=== PATIENT | female | born 1975 | race Caucasian/White ===

== ENCOUNTER 2016-08-23 16:02 | Inpatient (IN) | payer OTHER ==
[~2016-08-23] VITALS: Ht 165.1 cm; Wt 65.2 kg
[~2016-08-23 16:02] MED LIST: FLUT1SPR9; GUAI100S6 PO; TRAZ100 PO
[2016-08-23 16:15] VITALS: BP 121/89; PULSE 65; RESP 16; TEMP 97.8; O2SAT 100
[2016-08-23] MEDS: ACETAMINOPHEN/HYDROcodone 325 MG/5 MG TAB PO PRN ×2 (16:57→20:55)
[2016-08-23] MEDS: cefTRIAXone 2,000 MG/NS 100 ML IV SCH ×2 (16:59)
[2016-08-23 17:02] LABS: AUTOMATED NEUTROPHIL # 3.9 TH/MM3 (1.8-7.7); BASOPHIL # 0.1 TH/MM3 (0-0.2); BASOPHIL % 0.7 % (0.0-2.0); EOSINOPHIL # 0.1 TH/MM3 (0-0.4); EOSINOPHIL % 1.2 % (0.0-4.0); HEMATOCRIT 39.3 % (35.0-46.0); HEMO FLAGS DIFF FINAL; LYMPH % 43.4 % (9.0-44.0); LYMPHOCYTE # 3.6 TH/MM3 (1.0-4.8); MEAN CELL VOLUME 80.8 FL (80.0-100.0); MEAN CORPUSCULAR HEMOGLOBIN 26.9 PG (27.0-34.0); MEAN CORPUSCULAR HGB CONC 33.2 % (32.0-36.0); MONO % 7.7 % (0.0-8.0); PLATELET COUNT 300 TH/MM3 (150-450); RED BLOOD COUNT 4.87 MIL/MM3 (4.00-5.30); RED CELL DISTRIBUTION WIDTH 12.8 % (11.6-17.2); WHITE BLOOD COUNT 8.3 TH/MM3 (4.0-11.0)
[2016-08-23] MEDS: LACTATED RINGER'S 1000 ML INJ 1,000 ML IV SCH (17:05)
[2016-08-23] MEDS: CLINDAMYCIN INJ 900 MG in SODIUM CHLORIDE 0.9% INJ 100 ML IV SCH (18:36)
[2016-08-23 20:00] VITALS: BP 126/81; PULSE 60; RESP 20; TEMP 96.8; O2SAT 100
[2016-08-23] MEDS: guaiFENesin E.R. 600 MG TAB PO SCH (20:54)
[2016-08-23] MEDS: ONDANSETRON HCL 4 MG/2 ML VIAL IV PRN (20:56)
[2016-08-24] VITALS: BP 113/67; PULSE 63; RESP 18; TEMP 97.6; O2SAT 99
[2016-08-24] MEDS: CLINDAMYCIN INJ 900 MG in SODIUM CHLORIDE 0.9% INJ 100 ML IV SCH ×3 (02:09→17:36)
[2016-08-24] MEDS: ONDANSETRON HCL 4 MG/2 ML VIAL IV PRN ×3 (02:59→16:03)
[2016-08-24] MEDS: ACETAMINOPHEN/HYDROcodone 325 MG/5 MG TAB PO PRN ×3 (03:00→16:04)
[2016-08-24 04:00] VITALS: BP 107/64; PULSE 62; RESP 16; TEMP 97.6; O2SAT 98
[2016-08-24 08:00] VITALS: BP 123/79; PULSE 84; RESP 17; TEMP 98; O2SAT 98
--- NOTE | 2016-08-24 08:54 | PD.CONS ---
History of Present Illness Service [facility] Consult Requested By Dr. Mcallister Reason for Consult Medical management Primary Care Physician Saira Caban MD Diagnoses: (1) Pansinusitis History of Present Illness I have been asked to see this 40-year-old female with questionable history of autoimmune/antiphospholipid syndrome who with admitted last night to ENT service for pansinusitis. Patient reports that she started feeling sick sometime around Christ of 2015 but thought she had a simple virus and that it would resolve on its own. However Her respiratory symptoms and sinus pressure continued as well as fever. She was initially treated with Augmentin on August 05 per her primary care physician. This seemed to help for a short time but then she noted pain in her left tonsil area as well as recurrence of fever. Antibiotic was changed to doxycycline and Medrol was added August 13 by an urgent care center. She notes she didn't get much relief and the antibiotic reportedly was changed to levofloxacin which also didn't provide much relief. She started having pain in the right mastoid sinus area which causes her to be nervous. CT scan of her sinuses done August 19 reportedly demonstrated extensive sinus disease in the frontal sinuses, nasofrontal ducts, ethmoid sinuses, maxillary sinuses and ostiomeatal complex bilaterally. She was evaluated by Dr. Mcallister reportedly on 2 occasions. Due to the worsening of pain and apparent unresponsiveness to antibiotic she was admitted to the hospital for IV antibiotics and possible surgical intervention. He was placed on IV clindamycin and Rocephin last night. She reports that she feels better this morning. She did not sleep well as she is on Lortab for pain and this always keeps her awake she says. She has had no documented fevers here and her CBC is essentially unremarkable. Review of Systems Constitutional: COMPLAINS OF: Fatigue, Fever, Chills, Night Sweats Eyes: DENIES: Blurred vision, Diplopia, Eye inflammation, Eye pain, Vision loss , Photosensitivity, Double Vision Ears, nose, mouth, throat: COMPLAINS OF: Throat pain, Running Nose, Sinus Pain , DENIES: Tinnitus, Hearing loss, Vertigo, Nasal discharge, Oral lesions, Hoarseness, Ear Pain, Epistaxis, Toothache, Odynophagia Respiratory: DENIES: Apneas, Cough, Snoring, Wheezing, Hemoptysis, Sputum production, Shortness of breath Cardiovascular: DENIES: Chest pain, Palpitations, Syncope, Dyspnea on Exertion , PND, Lower Extremity Edema, Orthopnea, Claudication Gastrointestinal: DENIES: Abdominal pain, Black stools, Bloody stools, Constipation, Diarrhea, Nausea, Vomiting, Difficulty Swallowing, Anorexia Musculoskeletal: COMPLAINS OF: Muscle aches Hematologic/lymphatic: DENIES: Bruising, Lymphadenopathy Immunologic/allergic: DENIES: Eczema, Urticaria Neurologic: DENIES: Abnormal gait, Headache, Localized weakness, Paresthesias, Seizures, Speech Problems, Tremor, Poor Balance Psychiatric: COMPLAINS OF: Anxiety Past Family Social History Allergies: Coded Allergies: No Known Allergies (Verified , 10/07/15) Past Medical History Questionable lupus Questionable antiphospholipid syndrome Vitamin D deficiency Situational depression and anxiety Past Surgical History 2 D&C Partial hysterectomy Reported Medications Benzonatate 200 mg 3 times a day when necessary cough Flonase 2 sprays in each nostril daily Levaquin 500 mg a day which was started in August 19 Trazodone 100 mg 2 tablets at bedtime as needed, she reports she takes this approximately 3-4 days out of the week Cough syrup with codeine 1-2 teaspoons every 4-6 hours as needed for cough Family History Father had lung CA Maternal aunt with breast CA MGF pancreatic CA at age 86 Social History 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 SKIN: Multiple tattoos, No rashes, ecchymoses or lesions. Cool and dry. HEAD: Atraumatic. Normocephalic. No temporal or scalp tenderness. Slight tenderness over maxillary sinuses and right mastoid sinus. EYES: Pupils equal round and reactive. Extraocular motions intact. No scleral icterus. No injection or drainage. ENT: Nose without bleeding, purulent drainage or septal hematoma. Throat with mild erythema but no exudate. Airway patent. NECK: Trachea midline. No JVD or lymphadenopathy. Supple, nontender, no meningeal signs. CARDIOVASCULAR: Regular rate and rhythm without murmurs, gallops, or rubs. RESPIRATORY: Clear to auscultation. Breath sounds equal bilaterally. No wheezes , rales, or rhonchi. GASTROINTESTINAL: Abdomen soft, non-tender, nondistended. No hepato-splenomegaly , or palpable masses. No guarding. MUSCULOSKELETAL: Extremities without clubbing, cyanosis, or edema. No joint tenderness, effusion, or edema noted. No calf tenderness. NEUROLOGICAL: Awake and alert. Cranial nerves II through XII intact. Motor and sensory grossly within normal limits. Five out of 5 muscle strength in all muscle groups. Normal speech. Laboratory Laboratory Tests Test 08/23/16 16:50 White Blood Count 8.3 Red Blood Count 4.87 Hemoglobin 13.1 Hematocrit 39.3 Mean Corpuscular Volume 80.8 Mean Corpuscular Hemoglobin 26.9 Mean Corpuscular Hemoglobin 33.2 Concent Red Cell Distribution Width 12.8 Platelet Count 300 Mean Platelet Volume 8.1 Neutrophils (%) (Auto) 47.0 Lymphocytes (%) (Auto) 43.4 Monocytes (%) (Auto) 7.7 Eosinophils (%) (Auto) 1.2 Basophils (%) (Auto) 0.7 Neutrophils # (Auto) 3.9 Lymphocytes # (Auto) 3.6 Monocytes # (Auto) 0.6 Eosinophils # (Auto) 0.1 Basophils # (Auto) 0.1 CBC Comment DIFF FINAL Differential Comment Result Diagram: 08/23/[address] scan of the sinuses done August 19, 2016 reportedly demonstrates pansinusitis with opacification of ostiomeatal complex bilaterally Assessment and Plan Problem List: (1) Pansinusitis Status: Acute Plan: Continue antibiotics. Patient reports some improvement overnight. Management per ENT. (2) Insomnia Status: Acute Plan: Trazodone as needed. Lortab actually tends to cause insomnia in this patient. We'll use low-dose IV morphine or Dilaudid at bedtime. Assessment and Plan Treatment plan as noted above. Thank you for consultation and opportunity to participate in this pleasant patient's care. Discussed Condition With Patient Problem Qualifiers (1) Pansinusitis: Francesco Avitia PhD Aug 24, 2016 08:54
[2016-08-24] MEDS ORDERED: HYDROmorphone HCL PF 1 MG/ML VIAL IV PUSH PRN (09:00)
[2016-08-24] MEDS ORDERED: INFLUENZA VIRUS VACCINE (QUADRIVALENT) 0.5 ML SYR IM ONE (09:00)
[2016-08-24] MEDS ORDERED: traZODone HCL 100 MG TAB PO PRN (09:00)
[2016-08-24] MEDS ORDERED: methylPREDNISolone SOD SUCC 40 MG/1 ML VIAL IV PUSH ONE (09:30)
[2016-08-24] MEDS: guaiFENesin E.R. 600 MG TAB PO SCH ×2 (10:04→21:42)
[2016-08-24] MEDS: LACTATED RINGER'S 1000 ML INJ 1,000 ML IV SCH ×2 (10:04→17:36)
[2016-08-24 12:00] VITALS: BP 108/64; PULSE 66; RESP 18; TEMP 97.8; O2SAT 96
[2016-08-24] MEDS: cefTRIAXone 2,000 MG/NS 100 ML IV SCH ×2 (16:02)
[2016-08-24 20:00] VITALS: BP 99/64; PULSE 70; RESP 18; TEMP 97.3; O2SAT 97
[2016-08-25] VITALS: BP 87/57; PULSE 64; RESP 18; TEMP 96.9; O2SAT 96
[2016-08-25] MEDS: CLINDAMYCIN INJ 900 MG in SODIUM CHLORIDE 0.9% INJ 100 ML IV SCH ×2 (02:10→08:56)
[2016-08-25] MEDS: LACTATED RINGER'S 1000 ML INJ 1,000 ML IV SCH (04:55)
[2016-08-25] MEDS ORDERED: cefTRIAXone 2,000 MG/NS 100 ML IV SCH ×2 (05:00)
[2016-08-25 08:00] VITALS: BP 108/86; PULSE 77; RESP 18; TEMP 98.2; O2SAT 96
--- NOTE | 2016-08-25 08:21 | HHI.PR ---
Subjective Remarks Feeling better today. He slept well last night. Solu-Medrol seemed to help significantly yesterday. Still with some pain in sinuses and right posterior neck, but improved. Objective Vitals Vital Signs Date Time Temp Pulse Resp B/P Pulse Ox O2 Delivery O2 Flow Rate FiO2 08/25/16 00:00 96.9 64 18 87/57 96 08/24/16 20:00 97.3 70 18 99/64 97 08/24/16 12:00 97.8 66 18 108/64 96 08/24/16 08/24/16 08/25/16 15:00 23:00 07:00 Intake Total 4158 ml 829 ml Balance 4158 ml 829 ml Intake Oral 520 ml 245 ml IV Total 3638 ml 584 ml # Voids 2 # Bowel Movements 0 GENERAL: No acute distress. Sleeping but arouses to voice. Cooperative with exam. SKIN: Warm and dry. Multiple tattoos. HEAD: Normocephalic. Slight tenderness in right posterior auricular area around mastoid sinus and posterior right neck. Tenderness to palpation over maxillary sinuses bilaterally. EYES: No scleral icterus. No injection or drainage. NECK: Supple, trachea midline. No JVD or lymphadenopathy. Slight tenderness with spasm right posterior neck. CARDIOVASCULAR: Regular rate and rhythm without murmurs, gallops, or rubs. RESPIRATORY: Breath sounds equal bilaterally. No accessory muscle use. GASTROINTESTINAL: Abdomen soft, non-tender, nondistended. MUSCULOSKELETAL: No cyanosis, or edema. BACK: No CVA tenderness. Result Diagram: 08/23/16 1650 Urinary Catheter: No Vascular Central Line Catheter: No A/P Problem List: (1) Pansinusitis Status: Acute Plan: Continue antibiotics. Management per ENT. We'll give another dose of Solu-Medrol this morning and Toradol later today. Hopefully discharge home later today. Assessment and Plan hopefully d/c later today Problem Qualifiers (1) Pansinusitis: Francesco Avitia PhD Aug 25, 2016 08:21
[2016-08-25] MEDS ORDERED: ACETAMINOPHEN/HYDROcodone 325 MG/5 MG TAB PO PRN (08:45)
[2016-08-25] MEDS: guaiFENesin E.R. 600 MG TAB PO SCH (08:55)
[2016-08-25] MEDS ORDERED: methylPREDNISolone SOD SUCC 40 MG/1 ML VIAL IV PUSH ONE (09:00)
[2016-08-25] MEDS ORDERED: KETOROLAC TROMETHAMINE 30 MG/ML (IVP) VIAL IV PUSH ONE (11:00)
[2016-09-17] MEDS ORDERED: TRAZ100T4 PO (10:17)
[2016-09-17] MEDS ORDERED: FLUT50SP EACH NARE (10:17)
[2016-09-17] MEDS ORDERED: GUAISYP4 PO (10:17)
[2016-09-21] MEDS ORDERED: AUGM875T PO (12:59)
[2016-09-21] MEDS ORDERED: HYDR-3516 PO (12:59)
== END 2016-08-25 14:07 | disposition home or self-care (01) | DRG 153 ==
LOC: PH3B 16:02
PROVIDERS: ADMIT Otolaryngology; ATTEND Otolaryngology
DX: J01.40 Acute pansinusitis, unspecified (principal); G47.00 Insomnia, unspecified
CPT/HCPCS: 85025; J0696; J1170; J1885; J2405; J2920; J7120

== ENCOUNTER → 2016-09-21 | Day surgery (SDC) | payer OTHER ==
[~2016-09-21] VITALS: Ht 162.6 cm; Wt 61.0 kg
[~2016-09-21] MED LIST changes: +AMPICILLIN-SULBACTAM INJ 3 GM VIAL ONE; +APREPITANT 40 MG CAP ONE; +AUGM875T PO; +FAMOTIDINE 20 MG/2 ML VIAL ONE; -FLUT1SPR9; +FLUT50SP EACH NARE; -GUAI100S6 PO; +GUAISYP4 PO; +HYDR-3516 PO; +LACTATED RINGER'S 1000 ML INJ 1,000 ML IV ONE; +LIDOCAINE 1%/EPINEPHrine 1:100,000 SOLN 30 ML VIAL ONE; +MEPERIDINE HCL 25 MG/ML VIAL ONE; +MIDAZOLAM HCL 2 MG/2 ML VIAL ONE; +MORPHINE SULFATE 4 MG/ML INJ ONE; +ONDANSETRON HCL 4 MG/2 ML VIAL IV PUSH ONE; +OXYMETAZOLINE HCL 0.05% 15 ML NASAL SPRAY ONE; +PHENYLEPH/NS 1000 MCG/10 ML SYR IV ONE; +PROMETHAZINE INJ 25 MG/ML VIAL ONE; +PROPOFOL 200 MG/20 ML AMP IV ONE; +SODIUM CHLORIDE 0.9% INJ 100 ML ONE; -TRAZ100 PO; +TRAZ100T4 PO; +fentaNYL CITRATE 250 MCG/5 ML AMP ONE
[2016-09-21 07:22] VITALS: BP 116/70; PULSE 66; RESP 16; TEMP 98.5; O2SAT 100
[2016-09-21] MEDS: BACITRACIN TOP OINT 15 GM TUBE ONE ×2 (10:03→10:28)
[2016-09-21 11:05] VITALS: PULSE 78
[2016-09-21 14:15] VITALS: BP 122/73; PULSE 73; RESP 16; TEMP 98.2; O2SAT 100
--- NOTE | 2016-10-04 08:53 | MP ---
cc: NESS MCALLISTER M.D. DATE OF OPERATION September 21, [address] Ness Mcallister PREOPERATIVE DIAGNOSES 1. Chronic pansinusitis. 2. Chronic sinus headache. 3. Nasal airway obstruction. 4. Nasal septal deviation. 5. Hypertrophy of inferior turbinates. POSTOPERATIVE DIAGNOSES 1. Chronic pansinusitis. 2. Chronic sinus headache. 3. Nasal airway obstruction. 4. Nasal septal deviation. 5. Hypertrophy of inferior turbinates. OPERATION PERFORMED 1. Septoplasty. 2. Bilateral submucosal resection of inferior turbinates. 3. Bilateral endoscopic total ethmoidectomy. 4. Bilateral endoscopic maxillary antrostomy with removal of maxillary sinus contents. 5. Bilateral endoscopic exploration of frontal sinus ducts with balloon sinuplasty. 6. Bilateral endoscopic sphenoidotomy with removal of sphenoid sinus contents. INDICATIONS Documented in the history and physical. DESCRIPTION OF OPERATION The patient was taken to OR #2 and placed in the supine position. Following induction of general anesthesia and intubation the nose was packed bilaterally with cotton pledgets saturated in 0.05% oxymetazoline. The septal mucosa and inferior turbinates then were injected with a total of 12 mL of 1% Xylocaine with epinephrine 1:100,000 and she was then prepped and draped for surgery. The nasal packing was removed and a hemitransfixion incision was made in the left nasal vestibule. Through this incision the septal mucosa was elevated bilaterally as far as the sphenoid rostrum. This was followed by removal of a 2 x 2 cm segment of the quadrangular cartilage preserving 1.5 cm dorsal and caudal cartilaginous struts. The mucosa was then elevated from the bony septum and the maxillary crest. The bony septum was removed using Kasi-Terrie forceps. The maxillary crest was removed using a 6-mm Bradley chisel. The incision was then closed using a running suture of 4-0 chromic and the mucosal layers of septum were approximated to each other with a quilting stitch of 4-0 plain gut. The inferior turbinates were addressed next. They were fractured out medially and stab incisions were made along their inferior surfaces. Through these incisions, the submucosal soft tissue was reduced using a curette and preserving the conchal bone. The incisions were then cauterized using the suction Bovie at 40 ling and the remnants of the inferior turbinates were then we lateralized to the lateral nasal wall. From this point forward the operation was completed using endoscopic visualization with a 0-degree fiberoptic scope. Additional injections of lidocaine and epinephrine were made into the attachments of the middle turbinates, the uncinate processes and to the ethmoid cells. The left side was then addressed first beginning with amputation of the middle turbinate using through-cutting Blakesley forceps and the power microdebrider and this was included in the specimen labeled left sinus contents. The right middle turbinate was then removed in the same fashion and was included in the specimen labeled right sinus contents. Returning to the left side, then the uncinate process was taken down using a sickle knife and Blakesley forceps exposing the ethmoid bulla. The bulla was then bluntly penetrated with Blakesley forceps and then using blunt and power dissection the anterior ethmoid cells were exenterated. Fragments of bone and soft tissue were included in the left sinus content specimen. This was carried back as far as the basal lamella and the basal lamella was then reduced medially to laterally using the power debrider exposing the posterior cells. These were also exenterated with blunt and power dissection back as far as the rostrum of the sphenoid. When this was completed, the maxillary ostium was then probed using a 3-mm olive-tip suction and then enlarged using Stammberger forceps and the power microdebrider. This gave generous access to the maxillary sinus and the sinus was debrided of soft tissue from the posterior medial and lateral gates which were included in the left sinus contents specimen. When this left maxillary was completed, the right ethmoids then were addressed beginning with the uncinectomy and exenteration from anterior to posterior using blunt and power dissection. The bone and soft tissue of the anterior and posterior ethmoids were included in the specimen labeled right sinus contents. The maxillary ostium was then opened and debrided in identical fashion as was the left side and the contents were included in the right sinus specimen. At this point the balloon was then used to dilate the frontal sinus ducts. The guidewire was cannulated into the frontal sinus on the left and then the balloon was advanced over the wire. The duct was dilated at three levels superiorly at the midpoint and inferiorly at the junction with the ethmoid cells. The balloon was then removed and with a 70-degree scope some fragments of bone and soft tissue were removed from the duct. It was verified generously patent all the way into the frontal sinus. The right side was then operated in the same fashion and was verified patent all the way into the frontal sinus. Lastly, the sphenoid was addressed using a #10 suction. The ostium was identified and was probed and then enlarged using Blakesley forceps and the power microdebrider. The contents of each side was then removed using Blakesley forceps and included in the left and right sinus specimens. The sinuses then were irrigated with chilled saline and then suctioned, the sinuses then filled with Stammberger foam into the ethmoid and maxillary sinuses. The inferior nasal vault was then packed with Merocel tampons coated in bacitracin ointment and the procedure was terminated. The patient was reversed from anesthesia and taken to Recovery in good condition. There were no complications. Blood loss was 300 mL. MD SANDIP Mclean/YANY /6:14 AM /8:36 AM
== END | disposition home or self-care (01) ==
LOC: PHSDC 06:23
PROVIDERS: ATTEND Otolaryngology
DX: J34.89 Other specified disorders of nose and nasal sinuses (principal); J34.2 Deviated nasal septum; J32.4 Chronic pansinusitis; J32.2 Chronic ethmoidal sinusitis; J32.0 Chronic maxillary sinusitis; J32.3 Chronic sphenoidal sinusitis; G44.89 Other headache syndrome; J34.3 Hypertrophy of nasal turbinates
CPT/HCPCS: 00160; 30140; 30520; 31255; 31267; 31276; 31288; 88305; 88311; J0295; J2175; J2250; J2270; J2370; J2405; J2550; J3010; J7120; J8501

== ENCOUNTER → 2017-02-15 | Day surgery (SDC) | payer OTHER ==
[~2017-02-15] VITALS: Ht 162.6 cm; Wt 67.0 kg
[~2017-02-15] MED LIST changes: +ACETAMINOPHEN 1000 MG/100 ML VIAL IV ONE; +BACITRACIN TOP OINT 15 GM TUBE ONE; +CHLORHEXIDINE GLUCONATE 2 % 1 PACK (2 CLOTHS) TOPICAL PRN; +DEXAMETHASONE SOD PHOS 4 MG/ML VIAL ONE; +EPINEPHrine HCL (1:1000) 1 MG/ML VIAL ONE; -FLUT50SP EACH NARE; -GUAISYP4 PO; +INSULIN HUMAN REGULAR 1,000 UNITS/10 ML VIAL SQ PRN; -LACTATED RINGER'S 1000 ML INJ 1,000 ML IV ONE; +LACTATED RINGER'S 1000 ML IV PRN; -MEPERIDINE HCL 25 MG/ML VIAL ONE; +MEPERIDINE HCL 50 MG/ML VIAL ONE; +METOPROLOL TARTRATE 25 MG TAB PO PRN; -MORPHINE SULFATE 4 MG/ML INJ ONE; -ONDANSETRON HCL 4 MG/2 ML VIAL IV PUSH ONE; -PHENYLEPH/NS 1000 MCG/10 ML SYR IV ONE; +POVIDONE IODINE 5% (ANTISEPSIS KIT) 4 APPLICATIONS EACH NARE PRN; -PROMETHAZINE INJ 25 MG/ML VIAL ONE; -PROPOFOL 200 MG/20 ML AMP IV ONE; +SODIUM CHLORID 0.9% 500 ML IV PRN; +THROMBIN (TOPICAL) 5,000 UNIT VIAL ONE; -TRAZ100T4 PO; +TRAZ1TAB45 PO; -fentaNYL CITRATE 250 MCG/5 ML AMP ONE
[2017-02-15 07:20] VITALS: BP 129/72; PULSE 62; RESP 16; TEMP 98.1; O2SAT 99
[2017-02-15 12:40] VITALS: BP 102/72; PULSE 88; RESP 16; TEMP 98.2; O2SAT 98
--- NOTE | 2017-02-15 13:33 | MP ---
cc: NESS MCALLISTER M.D. DATE OF SURGERY February 15, [address] Ness Mcallister PREOPERATIVE DIAGNOSIS Chronic left-sided pansinusitis. POSTOPERATIVE DIAGNOSIS Chronic left-sided pansinusitis. OPERATION PERFORMED 1. Left endoscopic total ethmoidectomy. 2. Left endoscopic maxillary antrostomy with debridement of maxillary sinus tissue. 3. Left endoscopic exploration of frontal sinus duct with balloon dilation. 4. Left endoscopic sphenoidotomy with balloon dilation and debridement of sphenoid sinus contents. INDICATION Vicenta Kelly is a 41-year-old woman who underwent bilateral endoscopic sinus surgery around 5 months ago. She had done very well for a period of about 3 months when she began noticing recurrence of pain and pressure on her left side with persistent foul drainage from the left sinuses. Examination showed that there was dense granulation tissue filling the left maxillary and ethmoid sinuses, extending into the frontal duct. She was brought today for revision debridement of left paranasal sinuses. DESCRIPTION OF OPERATION The patient was taken to OR #2 and placed in the supine position. Following induction of general anesthesia and intubation, she was prepped and draped for endoscopic sinus surgery. The nose was packed bilaterally with cotton pledgets saturated in 0.05% oxymetazoline and remained in place for a period of 3 minutes. The packing was then removed and then the left side was examined using a rigid fiberoptic scope. This showed purulent material draining from the left lateral nasal wall. This was removed with suction and then using curved suction the ostium was identified. This was then cannulated using the balloon dilation technique and the balloon was inflated to a pressure of 12 atmospheres. It was then withdrawn through the ostium while still inflated, enlarging the ostium and removing some of the granulation tissue which was filling the ostium and the cavity. Further debridement and enlargement of the ostium was then completed using Stammberger forceps and the through cutting Blaamritaley forceps. Upbiting Lyndaley forceps was rotated 90 degrees and used to further debride the inflammatory tissue obstructing the ostium and the lateral one-half of the maxillary sinus. The sinuses then were irrigated with 200 mL of saline and purulent material was flushed from the sinus cavity. This continued until the irrigation returned clear. The ethmoids then were addressed. These were opened using blunt dissection back as far as the rostrum of the sphenoid. There was granulation tissue also in this area but no gross purulence was noted. The left frontal duct was then cannulated using the balloon guidewire and then the balloon itself was advanced over the guidewire and inflated to a pressure of 12 atmospheres at three levels at the superior limit, the midpoint inferior of the frontal duct. The balloon was then removed and the duct was examined with a 70-degree scope. Bone and soft tissue was removed from the duct and verified patent all the way into the frontal sinus. Lastly, the sphenoid ostium was cannulated with the balloon technique and then examined with a 0-degree scope and debrided of granulation tissue and thick polypoid material filling the sphenoid sinus. All sinuses were then irrigated with chilled saline and were suctioned. The nose was then packed on the left side with cotton pledgets saturated in oxymetazoline and the procedure was terminated. The patient was reversed from anesthesia and taken to Recovery in good condition. The cotton pledgets in the left side of the nose were then removed around 2 hours later in the recovery room. MD SANDIP Mclean/YANY /12:17 PM /1:29 PM
== END | disposition home or self-care (01) ==
LOC: PHSDC 06:18
PROVIDERS: ATTEND Otolaryngology
DX: J32.4 Chronic pansinusitis (principal); R09.81 Nasal congestion
CPT/HCPCS: 00160; 31255; 31267; 31276; 31288; 88305; 88311; J0131; J0295; J1100; J2175; J2250; J3010; J7120; J8501; J0171

== ENCOUNTER 2017-08-16 06:08 | Observation (INO) | payer OTHER ==
[~2017-08-16] VITALS: Ht 162.6 cm; Wt 71.0 kg
[2017-08-16 00:24] VITALS: O2SAT 100
[~2017-08-16 06:08] MED LIST changes: -ACETAMINOPHEN 1000 MG/100 ML VIAL IV ONE; -AMPICILLIN-SULBACTAM INJ 3 GM VIAL ONE; -APREPITANT 40 MG CAP ONE; -AUGM875T PO; -BACITRACIN TOP OINT 15 GM TUBE ONE; -CHLORHEXIDINE GLUCONATE 2 % 1 PACK (2 CLOTHS) TOPICAL PRN; -DEXAMETHASONE SOD PHOS 4 MG/ML VIAL ONE; -EPINEPHrine HCL (1:1000) 1 MG/ML VIAL ONE; -FAMOTIDINE 20 MG/2 ML VIAL ONE; -INSULIN HUMAN REGULAR 1,000 UNITS/10 ML VIAL SQ PRN; -LACTATED RINGER'S 1000 ML IV PRN; -LIDOCAINE 1%/EPINEPHrine 1:100,000 SOLN 30 ML VIAL ONE; -MEPERIDINE HCL 50 MG/ML VIAL ONE; -METOPROLOL TARTRATE 25 MG TAB PO PRN; -MIDAZOLAM HCL 2 MG/2 ML VIAL ONE; -OXYMETAZOLINE HCL 0.05% 15 ML NASAL SPRAY ONE; -POVIDONE IODINE 5% (ANTISEPSIS KIT) 4 APPLICATIONS EACH NARE PRN; -SODIUM CHLORID 0.9% 500 ML IV PRN; -SODIUM CHLORIDE 0.9% INJ 100 ML ONE; -THROMBIN (TOPICAL) 5,000 UNIT VIAL ONE; +TRAZ1TAB14 PO; -TRAZ1TAB45 PO
[2017-08-16] MEDS ORDERED: CHLORHEXIDINE GLUCONATE 2 % 1 PACK (2 CLOTHS) TOPICAL PRN (06:45)
[2017-08-16] MEDS ORDERED: METOPROLOL TARTRATE 25 MG TAB PO PRN (06:45)
[2017-08-16] MEDS ORDERED: LACTATED RINGER'S 1000 ML IV PRN (06:45)
[2017-08-16] MEDS ORDERED: AMPICILLIN/SULBAC 3 GM/NS 100 ML IV SCH ×2 (06:45)
[2017-08-16] MEDS ORDERED: POVIDONE IODINE 5% (ANTISEPSIS KIT) 4 APPLICATIONS EACH NARE PRN (06:45)
[2017-08-16] MEDS ORDERED: GABA100C4 PO (06:50)
[2017-08-16] MEDS ORDERED: MICROFIBRILLAR COLLAGEN HEMOSTAT 1 GM PKT ONE (07:10)
[2017-08-16] MEDS ORDERED: OXYMETAZOLINE HCL 0.05% 15 ML NASAL SPRAY ONE (07:10)
[2017-08-16] MEDS ORDERED: MIDAZOLAM HCL 2 MG/2 ML VIAL ONE (07:32)
[2017-08-16] MEDS ORDERED: FAMOTIDINE 20 MG/2 ML VIAL ONE (07:32)
[2017-08-16] MEDS ORDERED: APREPITANT 40 MG CAP ONE (07:32)
[2017-08-16 08:34] VITALS: PULSE 86
[2017-08-16] MEDS ORDERED: MEPERIDINE HCL 25 MG/ML VIAL ONE (08:52)
[2017-08-16] MEDS ORDERED: HYDROmorphone HCL PF 0.5 MG/0.5 ML SYRINGE ONE (09:04)
[2017-08-16] MEDS ORDERED: PROMETHAZINE INJ 25 MG/ML VIAL ONE (09:10)
[2017-08-16] MEDS: LACTATED RINGER'S 1000 ML INJ 1,000 ML IV SCH ×2 (10:00→20:00)
[2017-08-16] MEDS ORDERED: DO NOT ADM ANY ANTICOAGULANT DRUGS PRN (10:00)
[2017-08-16 11:05] VITALS: BP 106/74; PULSE 69; RESP 18; TEMP 97.3; O2SAT 97
[2017-08-16 12:28] VITALS: O2SAT 100
[2017-08-16] MEDS: HYDROmorphone HCL 2 MG TAB PO PRN ×2 (13:25→20:15)
[2017-08-16] MEDS: ONDANSETRON HCL 4 MG/2 ML VIAL IV PRN ×2 (13:26→20:15)
[2017-08-16] MEDS: AMPICILLIN/SULBAC 3 GM/NS 100 ML IV SCH ×2 (17:13)
[2017-08-16 20:00] VITALS: BP 109/68; PULSE 84; RESP 20; TEMP 98.3; O2SAT 99
[2017-08-16 21:30] VITALS: O2SAT 98
[2017-08-17] VITALS: BP 106/56; PULSE 65; RESP 20; TEMP 97.7; O2SAT 98
[2017-08-17] MEDS: AMPICILLIN/SULBAC 3 GM/NS 100 ML IV SCH ×4 (00:03→08:10)
[2017-08-17] MEDS: HYDROmorphone HCL 2 MG TAB PO PRN ×2 (02:31→08:15)
[2017-08-17] MEDS: LACTATED RINGER'S 1000 ML INJ 1,000 ML IV SCH (06:00)
[2017-08-17 08:00] VITALS: BP 106/73; PULSE 68; RESP 16; TEMP 98; O2SAT 96
[2017-08-17] MEDS ORDERED: PROPOFOL 200 MG/20 ML AMP IV ONE (12:00)
[2017-08-17] MEDS ORDERED: ePHEDrine/NS 25 MG/5 ML SYRINGE IV ONE (12:00)
[2017-08-17] MEDS ORDERED: LIDOCAINE HCL 1% PF 5 ML SYRINGE OTHER ONE (12:00)
[2017-08-17] MEDS ORDERED: ONDANSETRON HCL 4 MG/2 ML VIAL IV PUSH ONE (12:00)
[2017-08-17] MEDS ORDERED: PHENYLEPH/NS 1000 MCG/10 ML SYR IV ONE (12:00)
[2017-08-17] MEDS ORDERED: DEXAMETHASONE SOD PHOS 4 MG/ML VIAL IV ONE (12:00)
--- NOTE | 2017-09-04 12:23 | MP ---
cc: NESS MCALLISTER MD DATE OF SURGERY: August 16, [address] Ness Mcallister PREOPERATIVE DIAGNOSIS 1. Adenotonsillar hypertrophy 2. Chronic tonsillitis. POSTOPERATIVE DIAGNOSIS: 1. Adenotonsillar hypertrophy 2. Chronic tonsillitis. OPERATION PERFORMED Adenotonsillectomy INDICATIONS Documented in history and physical. DESCRIPTION OF OPERATION The patient was taken to OR #2 and placed in the supine position. Following induction of general anesthesia and intubation a shoulder roll, a Mian head drape and a McIvor mouth gag were put in place. The tonsils were removed using ArthroCare Coblator technique. A few sites of bleeding on the left side were cauterized using the bipolar cautery. On the right side hemostasis was obtained using the monopolar cautery as well as packing with Avitene microfibrils. When this was completed the adenoids were removed using the suction Bovie at 45 ling. The stomach was then aspirated of several cc of bilious gastric contents using a #18 [employer] sump NG tube. When this was completed, the mouth gag was removed and the procedure was terminated. The patient was reversed from anesthesia and taken to recovery in good condition. There were no complications. Blood loss was 100 mL. Ness Mcallister MD [facility] [place] /11:17 AM /12:15 PM
== END 2017-08-17 12:50 | disposition home or self-care (01) ==
LOC: PHSDC 06:08 → PH3A 10:00
PROVIDERS: ADMIT Otolaryngology; ATTEND Otolaryngology
DX: J35.01 Chronic tonsillitis (principal); J35.8 Other chronic diseases of tonsils and adenoids
CPT/HCPCS: 00170; 42821; 88304; 94762; 96365; 96366; 96375; 96376; G0378; J0295; J1100; J1170; J2175; J2250; J2370; J2405; J2550; J3010; J7120; 88300; J8501

== ENCOUNTER 2017-11-15 21:25 | Emergency (ER) | payer OTHER ==
[~2017-11-15] VITALS: Ht 165.1 cm; Wt 72.1 kg
[~2017-11-15 21:25] MED LIST changes: +GABA100C4 PO
[2017-11-15 21:29] VITALS: BP 113/56; PULSE 79; RESP 18; TEMP 99.5; O2SAT 96
[2017-11-15] MEDS ORDERED: SODIUM CHLOR 0.9% 1000 ML INJ 1,000 ML IV SCH (21:48)
--- NOTE | 2017-11-15 21:55 | PD ---
HPI Chief Complaint: Abdominal Pain Time Seen by Provider: 21:40 Travel History International Travel<30 days: No Contact w/Intl Traveler<30days: No Traveled to known affect area: No History of Present Illness HPI The patient was seen and examined in the presence of the nurse. This patient complains of nausea and vomiting and diarrhea and abdominal pain. Duration 1 day. Severity is moderate. She has abdominal pain that is at its worse in the epigastrium but also has some right upper quadrant and right lower quadrant pains. No alleviating factors. No exacerbating factors. She is also got a prominent dry hacking cough. She has had a hysterectomy PFSH Past Medical History Arthritis: Yes Autoimmune Disease: Yes (POSSIBLE LUPUS) Blood Disorders: No Depression: Yes Cancer: No Cardiovascular Problems: No Diabetes: No Diminished Hearing: No Endocrine: No Glaucoma: No Genitourinary: No Hepatitis: No Hiatal Hernia: No Hypertension: No Immune Disorder: No Musculoskeletal: No Neurologic: No Psychiatric: Yes Reproductive: Yes (ENDOMETRIOSIS, CYSTS (UTERINE)) Respiratory: No Immunizations Current: No Thyroid Disease: No ?: Not : 8 Para: 4 Miscarriage: 4 : 0 Tubal Ligation: Yes Past Surgical History Abdominal Aneurysm Repair: Yes (2 C- SECTION) Abdominal Surgery: Yes (LAPAROSCOPY (CYST REMOVAL) X 3) AICD: No Body Medical Devices: PERMANENT RETAINER Cardiac Surgery: No Section: Yes Ear Surgery: No Endocrine Surgery: No Eye Surgery: No Genitourinary Surgery: No Gynecologic Surgery: Yes (C SECTION 2, LAPAROSCOPY) Hysterectomy: Yes Joint Replacement: No Oral Surgery: Yes (PALATE EXPANSION) Pacemaker: No Thoracic Surgery: No Other Surgery: Yes (LApEROSCOPY) Social History Alcohol Use: No Tobacco Use: No Substance Use: No Allergies-Medications (Allergen,Severity, Reaction): Coded Allergies: No Known Allergies (Verified Allergy, Unknown, 08/23/17) Reported Meds & Prescriptions Reported Meds & Active Scripts Active Phenergan (Promethazine HCl) 25 Mg Tablet 25 Mg PO Q6H PRN Reported Gabapentin 100 Mg Cap 100 Mg PO HS Trazodone (Trazodone HCl) 150 Mg Tablet 200 Mg PO HS Review of Systems General / Constitutional: No: Fever Eyes: No: Visual changes HENT: No: Headaches Cardiovascular: No: Chest Pain or Discomfort Respiratory: Positive: Cough, No: Shortness of Breath Gastrointestinal: Positive: Nausea, Vomiting, Diarrhea, Abdominal Pain Genitourinary: No: Dysuria Musculoskeletal: No: Pain Skin: No Rash Neurologic: No: Weakness Psychiatric: No: Depression Endocrine: No: Polydipsia Hematologic/Lymphatic: No: Easy Bruising Physical Exam Narrative GENERAL: Well-nourished, well-developed patient with abdominal pain and nausea. SKIN: Focused skin assessment reveals no rash and nodules. Skin is Warm and dry. HEAD: Atraumatic. Normocephalic. EYES: Pupils equal and round. No scleral icterus. No injection or drainage. ENT: No nasal bleeding or discharge. Mucous membranes pink and moist. NECK: Trachea midline. No JVD. CARDIOVASCULAR: Regular rate and rhythm. No murmur appreciated. RESPIRATORY: No accessory muscle use. Clear to auscultation. Breath sounds equal bilaterally. GASTROINTESTINAL: Abdomen soft, epigastric and right upper quadrant and right lower quadrant tenderness without rebound or guarding, nondistended. Hepatic and splenic margins not palpable. MUSCULOSKELETAL: No obvious deformities. No clubbing. No cyanosis. No edema. NEUROLOGICAL: Awake and alert. No obvious cranial nerve deficits. Motor grossly within normal limits. Normal speech. PSYCHIATRIC: Appropriate mood and affect; insight and judgment normal. Data Data Last Documented VS Vital Signs Date Time Temp Pulse Resp B/P (MAP) Pulse Ox O2 Delivery O2 Flow Rate FiO2 11/15/17 21:29 99.5 79 18 113/56 (75) 96 Orders Orders Complete Blood Count With Diff (11/15/17 21:48) Comprehensive Metabolic Panel (11/15/17 21:48) Lipase (11/15/17 21:48) Prothrombin Time / Inr (Pt) (11/15/17 21:48) Act Partial Throm Time (Ptt) (11/15/17 21:48) Ct Abd/Pel W Iv Contrast(Rout) (11/15/17 21:48) Iv Access Insert/Monitor (11/15/17 21:48) Ecg Monitoring (11/15/17 21:48) Oximetry (11/15/17 21:48) NPO (11/15/17 21:48) Ondansetron Inj (Zofran Inj) (11/15/17 22:00) Sodium Chlor 0.9% 1000 Ml Inj (Ns 1000 M (11/15/17 21:48) Sodium Chloride 0.9% Flush (Ns Flush) (11/15/17 22:00) Iohexol 350 Inj (Omnipaque 350 Inj) (11/15/17 22:23) Ed Discharge Order (11/15/17 22:43) Labs Laboratory Tests Test 11/15/17 20:00 White Blood Count 12.0 TH/MM3 Red Blood Count 5.57 MIL/MM3 Hemoglobin 15.3 GM/DL Hematocrit 45.7 % Mean Corpuscular Volume 82.1 FL Mean Corpuscular Hemoglobin 27.5 PG Mean Corpuscular Hemoglobin Concent 33.5 % Red Cell Distribution Width 14.1 % Platelet Count 293 TH/MM3 Mean Platelet Volume 8.2 FL Neutrophils (%) (Auto) 85.9 % Lymphocytes (%) (Auto) 9.4 % Monocytes (%) (Auto) 3.2 % Eosinophils (%) (Auto) 0.8 % Basophils (%) (Auto) 0.7 % Neutrophils # (Auto) 10.3 TH/MM3 Lymphocytes # (Auto) 1.1 TH/MM3 Monocytes # (Auto) 0.4 TH/MM3 Eosinophils # (Auto) 0.1 TH/MM3 Basophils # (Auto) 0.1 TH/MM3 CBC Comment DIFF FINAL Differential Comment Prothrombin Time 10.0 SEC Prothromb Time International Ratio 1.0 RATIO Activated Partial Thromboplast Time 25.3 SEC Blood Urea Nitrogen 12 MG/DL Creatinine 0.68 MG/DL Random Glucose 96 MG/DL Total Protein 8.2 GM/DL Albumin 3.5 GM/DL Calcium Level 8.5 MG/DL Alkaline Phosphatase 61 U/L Aspartate Amino Transf (AST/SGOT) 26 U/L Alanine Aminotransferase (ALT/SGPT) 27 U/L Total Bilirubin 0.8 MG/DL Sodium Level 136 MEQ/L Potassium Level 4.0 MEQ/L Chloride Level 106 MEQ/L Carbon Dioxide Level 24.8 MEQ/L Anion Gap 5 MEQ/L Estimat Glomerular Filtration Rate 95 ML/MIN Lipase 210 U/L [facility] Medical Decision Making Medical Screen Exam Complete: Yes Emergency Medical Condition: Yes Medical Record Reviewed: Yes Differential Diagnosis Colitis, cholecystitis, pancreatitis, gastroenteritis Narrative Course I have reviewed the patient's electronic medical record. IV placed and labs sent I gave her IV Zofran and 1 L normal saline IV bolus CT of abdomen and pelvis ordered CBC and metabolic studies are normal CT of abdomen pelvis is normal Patient is euvolemic Have not seen any vomiting or diarrhea during her stay here Workup is negative Phenergan prescribed and dietary recommendations provided Diagnosis Primary Impression: Nausea vomiting and diarrhea Additional Impression: Abdominal pain Qualified Codes: R10.84 - Generalized abdominal pain Additional Instructions: The patient was advised to follow up with their physician and return if they worsen. The patient was warned about potential sedation for the medications they will receive on prescription. I have recommended clear liquids for 24 hours, then gradually advance as tolerated. Med/Other Pt SpecificInfo: Prescription(s) given Scripts Promethazine (Phenergan) 25 Mg Tablet 25 MG PO Q6H Y for NAUSEA OR VOMITING, #14 TAB 0 Refills Prov: Selvin Rodgers MD 11/15/17 Disposition: 01 DISCHARGE HOME Condition: Stable Selvin Rodgers MD Nov 15, 2017 21:55
[2017-11-15] MEDS ORDERED: ONDANSETRON HCL 4 MG/2 ML VIAL IVP ONE (22:00)
[2017-11-15] MEDS ORDERED: SODIUM CHLORIDE 0.9% FLUSH 10 ML FLUSH IV FLUSH PRN (22:00)
[2017-11-15 22:07] VITALS: RESP 16; O2SAT 98
[2017-11-15 22:10] LABS: AUTOMATED NEUTROPHIL # 10.3 TH/MM3 (1.8-7.7); BASOPHIL # 0.1 TH/MM3 (0-0.2); BASOPHIL % 0.7 % (0.0-2.0); EOSINOPHIL # 0.1 TH/MM3 (0-0.4); EOSINOPHIL % 0.8 % (0.0-4.0); HEMATOCRIT 45.7 % (35.0-46.0); HEMOGLOBIN 15.3 GM/DL (11.6-15.3); LYMPH % 9.4 % (9.0-44.0); LYMPHOCYTE # 1.1 TH/MM3 (1.0-4.8); MEAN CELL VOLUME 82.1 FL (80.0-100.0); MEAN CORPUSCULAR HEMOGLOBIN 27.5 PG (27.0-34.0); MEAN CORPUSCULAR HGB CONC 33.5 % (32.0-36.0); MEAN PLATELET VOLUME 8.2 FL (7.0-11.0); MONO % 3.2 % (0.0-8.0); MONOCYTE # 0.4 TH/MM3 (0-0.9); NEUT % 85.9 % (16.0-70.0); PLATELET COUNT 293 TH/MM3 (150-450); RED BLOOD COUNT 5.57 MIL/MM3 (4.00-5.30); RED CELL DISTRIBUTION WIDTH 14.1 % (11.6-17.2)
[2017-11-15] MEDS ORDERED: IOHEXOL 350 MG/ML 10 ML VIAL (for RAD DIAG) IVCONTRAST ONE (22:23)
[2017-11-15 22:27] LABS: CHLORIDE 106 MEQ/L (98-107); SODIUM (NA) 136 MEQ/L (136-145)
--- NOTE | 2017-11-15 22:30 | RADRPT ---
EXAM DATE/TIME: 11/15/2017 22:09 [place] COMPARISON: No previous studies available for comparison. INDICATIONS : Abdominal pain. Nausea. Vomiting. Diarrhea. IV CONTRAST: 100 cc Omnipaque 350 (iohexol) IV ORAL CONTRAST: No oral contrast ingested. RADIATION DOSE: 11.78 CTDIvol (mGy) MEDICAL HISTORY : None SURGICAL HISTORY : Hysterectomy. section. ENCOUNTER: Initial ACUITY: 1 day PAIN SCALE: 5/10 LOCATION: Bilateral abdomen. TECHNIQUE: Volumetric scanning of the abdomen and pelvis was performed. Using automated exposure control and ad justment of the mA and/or kV according to patient size, radiation dose was kept as low as reasonably achievable to obtain optimal diagnostic quality images. DICOM format image data is available electro nically for review and comparison. FINDINGS: LOWER LUNGS: The visualized lower lungs are clear. LIVER: Homogeneous density without lesion. There is no dilation of the biliary tree. No calcified gallston es. SPLEEN: Normal size without lesion. PANCREAS: Within normal limits. KIDNEYS: Normal in size and shape. There is no mass, stone or hydronephrosis. Right renal low-density. ADRENAL GLANDS: Within normal limits. VASCULAR: There is no aortic aneurysm. BOWEL/MESENTERY: The stomach, small bowel, and colon demonstrate no acute abnormality. There is no free intraperitone al air or fluid. ABDOMINAL WALL: Within normal limits. RETROPERITONEUM: There is no lymphadenopathy. BLADDER: No wall thickening or mass. REPRODUCTIVE: Uterus is absent. INGUINAL: There is no lymphadenopathy or hernia. MUSCULOSKELETAL: Within normal limits for patient age. CONCLUSION: 1. No acute inflammatory process. 2. Status post hysterectomy. 3. Right renal low density likely cyst. Rahul Hamilton MD on November 15, 2017 at 22:26 Board Certified Radiologist. This report was verified electronically.
[2017-11-15 22:31] LABS: ALBUMIN 3.5 GM/DL (3.4-5.0); BICARBONATE 24.8 MEQ/L (21.0-32.0); BLOOD UREA NITROGEN 12 MG/DL (7-18); CALCIUM 8.5 MG/DL (8.5-10.1); GLUCOSE,RANDOM 96 MG/DL (74-106)
[2017-11-15 22:34] LABS: ALT (GPT) 27 U/L (10-53); AST (GOT) 26 U/L (15-37); CREATININE 0.68 MG/DL (0.50-1.00); GLOMERULAR FILTRATION RATE 95 ML/MIN (>89)
[2017-11-15 22:36] LABS: TOTAL BILIRUBIN ADULT 0.8 MG/DL (0.2-1.0); TOTAL PROTEIN 8.2 GM/DL (6.4-8.2)
[2017-11-15 22:37] LABS: ALKALINE PHOSPHATASE 61 U/L (45-117)
[2017-11-15] MEDS ORDERED: PROM25TA10 PO (22:43)
[2017-11-15] MEDS ORDERED: PROMETHAZINE HCL 25 MG TAB PO ONE (23:00)
[2017-11-15 23:39] VITALS: BP 112/61
== END 2017-11-15 23:42 | disposition home or self-care (01) ==
LOC: PHED 21:25
DX: R19.7 Diarrhea, unspecified (principal); R11.2 Nausea with vomiting, unspecified; R05 Cough; R10.84 Generalized abdominal pain; M19.90 Unspecified osteoarthritis, unspecified site; F32.9 Major depressive disorder, single episode, unspecified; Z90.710 Acquired absence of both cervix and uterus
CPT/HCPCS: 74177; 80053; 83690; 85025; 85610; 85730; 96361; 96374; 99284; J2405; J7030; Q0169; Q9967